=== PATIENT | female | born 1980 ===

== ENCOUNTER 2024-12-13 14:57 | Emergency (ER) | payer SELFPAY ==
[2024-12-13 15:03] VITALS: BP 157/94
--- NOTE | 2024-12-13 15:31 | ED.GENMED ---
History of Present Illness
General
Chief Complaint: Crisis Evaluation
Source: patient and police
Time Seen by Provider: 12/13/24 15:13
History of Present Illness
History of Present Illness:
Note:
CHIEF COMPLAINT(S)
Bizarre behavior, refusal to eat and drink.
HISTORY OF PRESENT ILLNESS
The patient is a 44-year-old female with a history of incarceration since April 2024 due to a charge of aggravated assault. She was found by detention staff exhibiting unusual behavior, refusing to eat and drink. Her ability to provide a coherent
history is limited, and she demonstrates difficulty focusing on one subject. She expresses a fear of hospital food. At one point, she was prescribed a medication likely to be Olanzapine (Zyprexa). Currently, she denies chest pain and shortness of
breath.
ADDITIONAL HISTORY OBTAINED FROM SOURCES OTHER THAN THE PATIENT
The police officers who brought the patient to the hospital reported her behavior as concerning. She arrives under a 302 commitment for emergency evaluation.
REVIEW OF SYSTEMS
- General: Issues with eating and drinking.
- Psychiatric: Bizarre behavior, difficulty focusing, fear of hospital food. Denies current chest pain or dyspnea (difficulty breathing).
PHYSICAL EXAM
General: Alert, no acute distress.
Skin: Warm, dry.
Head: Normocephalic, atraumatic.
Neck: Supple, trachea midline.
Eyes, Ears, Nose, Mouth, and Throat: Oral mucosa moist.
Cardiovascular: Normal peripheral perfusion, No edema.
Respiratory: Respirations are non-labored.
Gastrointestinal: Abdomen nondistended.
Back: Normal range of motion, Normal alignment.
Musculoskeletal: Normal range of motion, normal strength.
Neurological: Alert and oriented to person, place, time, and situation; no focal neurological deficit observed.
Psychiatric: Cooperative, exhibits paranoia, poor judgment
PROBLEM LIST
Acute:
- Bizarre behavior
- Refusal to eat and drink
PLAN
The patient is here on a 302 commitment for psychiatric evaluation. Further assessment and monitoring of her psychiatric status and eating/drinking habits will be conducted.
DIFFERENTIAL DIAGNOSIS
The Differential Diagnosis includes, in no particular order and is not limited to:
- Schizophrenia
- Major depressive disorder with psychotic features
- Bipolar disorder with psychotic features
- Delusional disorder
- Acute psychotic disorder
- Medication side effects
- Malnutrition-related cognitive impairment
- Substance-induced psychosis
- Anxiety disorder
- Adjustment disorder
Disposition:
SUMMARY OF ENCOUNTER
The patient is a 44-year-old female who was brought to the emergency department under a 302 commitment due to bizarre behavior, including refusal to eat and drink. Psychiatry was consulted, and they suspect schizophrenia. The patient was evaluated,
and it was determined that medication was necessary to manage her agitation.
PLAN
The patient is to be managed with a focus on her psychiatric evaluation while awaiting placement.
MEDICATION RECONCILIATION
Psychiatry has recommended antipsychotic medications, including alprazolam (uncertain if this was administered) and risperidone (uncertain if this was administered).
MEDICAL DECISION MAKING
-Complexity of Data Reviewed: Chronic conditions affecting care include the patients history of psychiatric problems such as bizarre behavior and likely schizophrenia. Differential diagnosis includes schizophrenia, major depressive disorder with
psychotic features, bipolar disorder with psychotic features, delusional disorder, acute psychotic disorder, medication side effects, malnutrition-related cognitive impairment, substance-induced psychosis, anxiety disorder, and adjustment disorder.
-Data:
Category 2: Clinical information was obtained from an independent historian, including input from the police officers who reported the patients concerning behavior.
Category 3: Discussion of management occurred with psychiatry via a consultation, recommending specific antipsychotic treatment to manage the patients current state.
DIAGNOSIS
Suspected Schizophrenia (ICD-10: F20.9).
Past History
Past History
ED Past Medical History: Psychiatric
ED Past Surgical History: None
Social History
Tobacco: Non-smoker
Phy Exam
Physical Exam
Physical Exam:
.
Course
Orders/Labs/Results
Orders:
Orders
12/13/24 15:46
Lorazepam [Ativan] 0.5 mg PO Q4HPRN PRN
Risperidone Disintegrating [Risperdal M-Tab (Orally Disintegrating)] 1 mg PO Q8HPRN PRN
Vital Signs
Initial and Last Documented VS:
Initial Vital Signs
Pulse Resp BP Pulse Ox
69 18 157/94 95
12/13/24 15:03 12/13/24 15:03 12/13/24 15:03 12/13/24 15:03
Last Documented Vital Signs
Pulse Resp BP Pulse Ox
69 16 157/94 95
12/13/24 15:03 12/13/24 22:15 12/13/24 15:03 12/13/24 15:31
*Pulse Oximetry
SaO2: 95
Oxygen Mode of Delivery: Room air
Patient hypoxic: no
*Critical Care Note
Total Time (30-74mins, 75-104mins- exclusive of procedures): 30 minutes
ED Attending Note
-
Portions of this chart may have been created with voice recognition software.� Occasional wrong word or��sound alike� substitutions may have occurred due to the inherent limitations of voice recognition software.
Discharge Plan
Departure
Patient Disposition: Psych Facility
Date of Disposition: 12/13/24
Time of Disposition: :
Discharge Problem:
Acute paranoia, suspected schizophrenia
Prescriptions:
No Action
No Current Medications
0
Referrals:
UNKNOWN - PT NOT,INTERVIEWE [Family Provider]
Interventions
Interventions:
*Risk Screen - Suicide Last Done: 12/13/24 15:03
*General Assessment Last Done: 12/13/24 15:03
*Neglect/Abuse Screening Last Done: 12/13/24 15:03
*ED- Fall Risk Assessment Last Done: 12/13/24 15:03
*ED COVID-19 Vaccine History Last Done: 12/13/24 15:03
*ED Influenza Vaccine History Last Done: 12/13/24 15:03
ED-Psychological Assessment Last Done: 12/13/24 15:03
Discharge Date and Time
Print Language: LUXEMBOURGISH
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
--- NOTE | 2024-12-14 12:31 | W.PN.UPDATE ---
Update Note
Progress Note Update
Pt seen, reviewed 302 and assessments. Pt standing in the corner of common area a C pod, looking at menu, stating she ate breakfast. Staff reports pt was up all night pacing around and yelling/screaming. Pt noted expressing delusions about
terrorists targeting her. She states she has been in therapy, but continues to decline medications. Affect inappropriate/bizarre. Pt appears very thin. She states she wants to leave; reviewed the 302/303 process. Insight is impaired.
Imp: Schizoaffective d/o vs Schizophrenia; on 302 from alf due to inability to care for self, psychosis
Rec: continue inpatient psych placement effort; continue current medications
Will follow
--- NOTE | 2024-12-14 19:56 | EDRN ---
Pt lying on bed with blanket over her head. This RN removed the blanket to uncover pt's face/head and informed pt her head must be visible. Pt repeatedly put the blanket back over her head. This RN informed pt each time her head must remain
visible. Offered to close pt's door to make room darker for her. Pt would not listen and put the blanket over her head again. This RN informed pt after approximately 4 times of doing this that her blanket will be removed if she continues to place
it over her head. Pt said 'you might as well take the blankets then because I'm going to keep doing it.' Blankets removed. Pt informed she can have the blankets back at any time when she stops covering her face/head with them. Offered pt
beverage/food which she did not respond to. Pt declined repeat VS. Empty containers of applesauce and food removed from pt bedside. Pt got up from bed and closed her door as this RN exited room. Pt being observed by security.
--- NOTE | 2024-12-14 20:58 | EDRN ---
Noted on camera that pt's entire body covered again including her head. This RN went in and found pt took the contour sheet on the bed and wrapped herself in it. This RN told pt her face must remain visible, uncovered at all times and if she is
unable to follow that instruction, the last sheet will be removed. Pt said she would do so. This RN left the room and pt immediately covered her face again. When door opened, pt uncovered her face and asked 'my whole face or just my eyes?'
Informed pt her entire face must be uncovered. Pt observed by security.
--- NOTE | 2024-12-14 22:06 | EDRN ---
Called crisis for update on pt status and informed pt has been denied everywhere, no one is currently reviewing pt. New bed search will happen overnight.
--- NOTE | 2024-12-15 01:41 | EDRN ---
Pt being watched by EDT now - this RN had to ask pt to uncover face again. This had to be done 3 times until pt settled and did not pull it back over her head/face.
--- NOTE | 2024-12-15 13:55 | W.PN.UPDATE ---
Update Note
Progress Note Update
Pt seen, presents the same today. Reportedly slept some overnight, prefers to keep a blanket over her head,despite repeated requests from staff to keep head uncovered. Pt has not taken any prn Risperidone or Ativan. Unclear from notes how much pt
is eating; appears in no distress, alert, oriented, calm, ambulating without difficulty.
Imp: Schizoaffective d/o vs Schizophrenia; [facility] due to inability to care for self, psychosis
Rec: continue assessment on 302. No inpatient psychiatric prospects at present due to pt requiring a Counts include 234 beds at the [facility] bed; continue current medications
Will follow
--- NOTE | 2024-12-16 00:23 | ED.GENMED ---
History of Present Illness
<Junaid Dorantes DO - Last Filed: 12/18/24 06:45>
General
Chief Complaint: Crisis Evaluation
Source: patient
Time Seen by Provider: 12/13/24 15:13
Nursing documentation reviewed up to this point in time: agreed with
History of Present Illness
History of Present Illness:
44-year-old female presents after incarceration to the emergency department for evaluation of psychiatric disorder.
Past History
<Junaid Dorantes DO - Last Filed: 12/18/24 06:45>
Past History
ED Past Medical History: Psychiatric
ED Past Surgical History: None
Social History
Tobacco: Non-smoker
Phy Exam
<Hay Mcqueen MD - Last Filed: 12/18/24 08:48>
Physical Exam
Physical Exam:
*
Course
<Junaid Dorantes DO - Last Filed: 12/18/24 06:45>
Orders/Labs/Results
Orders:
Orders
12/13/24 15:46
Lorazepam [Ativan] 0.5 mg PO Q4HPRN PRN
Risperidone Disintegrating [Risperdal M-Tab (Orally Disintegrating)] 1 mg PO Q8HPRN PRN
12/16/24
Electrocardiogram (*1) Stat
Reason for Study: Atrial Flutter
12/16/24 00:22
Test Result ONCE
12/16/24 09:15
Test Result ONCE
12/16/24 09:22
Ketamine [Ketamine HCl] 150 mg IM NOW STA
12/16/24 09:27
Straight cath- Treatment ONCE
12/16/24 09:40
Acetaminophen Urgent
Alcohol Urgent
Complete Blood Count/No Diff Urgent
Comprehensive Metabolic Panel Urgent
Salicylate Urgent
TSH Reflex To Free T4 Urgent
Comment: TSH REFLEX ADDED ON BY FLOOR 10:40AM 12-16-24
12/16/24 10:36
Risperidone Disintegrating [Risperdal M-Tab (Orally Disintegrating)] 1 mg PO NOW STA
12/16/24 10:42
Add On- LAB Urgent
Tests Added?: TSH to reflex freeT4
12/16/24 12:41
HCG, Urine Qualitative Screen Urgent
Date Specimen was Collected: 12/16/24
Time Specimen was Collected: 09:16
Urine Drug Abuse Screen Urgent
Date Specimen was Collected: 12/16/24
Time Specimen was Collected: 09:16
12/16/24 17:43
Olanzapine [Zyprexa] 2.5 mg IM Q12 PRN
12/16/24 20:00
Risperidone Disintegrating [Risperdal M-Tab (Orally Disintegrating)] 1 mg PO BID
12/18/24 10:10
Electrocardiogram (*1) Stat
Comment: ALREADY DONE IN ED
Abnormal Lab Results
12/16/24
09:40
WBC 4.2 L 10^3/uL
(4.8-10.8)
MPV 11.2 H fL
(7.4-10.4)
Salicylates < 1.0 L mg/dl
(2.0-20.0)
Acetaminophen < 10 L ug/ml
(10-30)
12/16/24 09:40
12/16/24 09:40
Vital Signs
Initial and Last Documented VS:
Initial Vital Signs
Pulse Resp BP Pulse Ox
69 18 157/94 95
12/13/24 15:03 12/13/24 15:03 12/13/24 15:03 12/13/24 15:03
Last Documented Vital Signs
Pulse Resp BP Pulse Ox
69 16 157/94 95
12/13/24 15:03 12/13/24 22:15 12/13/24 15:03 12/16/24 00:23
<Hay Mcqueen MD - Last Filed: 12/18/24 08:48>
Orders/Labs/Results
Orders:
Orders
12/13/24 15:46
Lorazepam [Ativan] 0.5 mg PO Q4HPRN PRN
Risperidone Disintegrating [Risperdal M-Tab (Orally Disintegrating)] 1 mg PO Q8HPRN PRN
12/16/24
Electrocardiogram (*1) Stat
Reason for Study: Atrial Flutter
12/16/24 00:22
Test Result ONCE
12/16/24 09:15
Test Result ONCE
12/16/24 09:22
Ketamine [Ketamine HCl] 150 mg IM NOW STA
12/16/24 09:27
Straight cath- Treatment ONCE
12/16/24 09:40
Acetaminophen Urgent
Alcohol Urgent
Complete Blood Count/No Diff Urgent
Comprehensive Metabolic Panel Urgent
Salicylate Urgent
TSH Reflex To Free T4 Urgent
Comment: TSH REFLEX ADDED ON BY FLOOR 10:40AM 12-16-24
12/16/24 10:36
Risperidone Disintegrating [Risperdal M-Tab (Orally Disintegrating)] 1 mg PO NOW STA
12/16/24 10:42
Add On- LAB Urgent
Tests Added?: TSH to reflex freeT4
12/16/24 12:41
HCG, Urine Qualitative Screen Urgent
Date Specimen was Collected: 12/16/24
Time Specimen was Collected: 09:16
Urine Drug Abuse Screen Urgent
Date Specimen was Collected: 12/16/24
Time Specimen was Collected: 09:16
12/16/24 17:43
Olanzapine [Zyprexa] 2.5 mg IM Q12 PRN
12/16/24 20:00
Risperidone Disintegrating [Risperdal M-Tab (Orally Disintegrating)] 1 mg PO BID
12/18/24 10:10
Electrocardiogram (*1) Stat
Comment: ALREADY DONE IN ED
Abnormal Lab Results
12/16/24
09:40
WBC 4.2 L 10^3/uL
(4.8-10.8)
MPV 11.2 H fL
(7.4-10.4)
Salicylates < 1.0 L mg/dl
(2.0-20.0)
Acetaminophen < 10 L ug/ml
(10-30)
12/16/24 09:40
12/16/24 09:40
Vital Signs
Initial and Last Documented VS:
Initial Vital Signs
Pulse Resp BP Pulse Ox
69 18 157/94 95
12/13/24 15:03 12/13/24 15:03 12/13/24 15:03 12/13/24 15:03
Last Documented Vital Signs
Pulse Resp BP Pulse Ox
69 16 157/94 95
12/13/24 15:03 12/13/24 22:15 12/13/24 15:03 12/16/24 00:23
<Rosemarie Perdue, DO - Last Filed: 12/16/24 18:12>
Orders/Labs/Results
Orders:
Orders
12/13/24 15:46
Lorazepam [Ativan] 0.5 mg PO Q4HPRN PRN
Risperidone Disintegrating [Risperdal M-Tab (Orally Disintegrating)] 1 mg PO Q8HPRN PRN
12/16/24
Electrocardiogram (*1) Stat
Reason for Study: Atrial Flutter
12/16/24 00:22
Test Result ONCE
12/16/24 09:15
Test Result ONCE
12/16/24 09:22
Ketamine [Ketamine HCl] 150 mg IM NOW STA
12/16/24 09:27
Straight cath- Treatment ONCE
12/16/24 09:40
Acetaminophen Urgent
Alcohol Urgent
Complete Blood Count/No Diff Urgent
Comprehensive Metabolic Panel Urgent
Salicylate Urgent
TSH Reflex To Free T4 Urgent
Comment: TSH REFLEX ADDED ON BY FLOOR 10:40AM 12-16-24
12/16/24 10:36
Risperidone Disintegrating [Risperdal M-Tab (Orally Disintegrating)] 1 mg PO NOW STA
12/16/24 10:42
Add On- LAB Urgent
Tests Added?: TSH to reflex freeT4
12/16/24 12:41
HCG, Urine Qualitative Screen Urgent
Date Specimen was Collected: 12/16/24
Time Specimen was Collected: 09:16
Urine Drug Abuse Screen Urgent
Date Specimen was Collected: 12/16/24
Time Specimen was Collected: 09:16
12/16/24 17:43
Olanzapine [Zyprexa] 2.5 mg IM Q12 PRN
12/16/24 20:00
Risperidone Disintegrating [Risperdal M-Tab (Orally Disintegrating)] 1 mg PO BID
12/18/24 10:10
Electrocardiogram (*1) Stat
Comment: ALREADY DONE IN ED
Abnormal Lab Results
12/16/24
09:40
WBC 4.2 L 10^3/uL
(4.8-10.8)
MPV 11.2 H fL
(7.4-10.4)
Salicylates < 1.0 L mg/dl
(2.0-20.0)
Acetaminophen < 10 L ug/ml
(10-30)
12/16/24 09:40
12/16/24 09:40
Vital Signs
Initial and Last Documented VS:
Initial Vital Signs
Pulse Resp BP Pulse Ox
69 18 157/94 95
12/13/24 15:03 12/13/24 15:03 12/13/24 15:03 12/13/24 15:03
Last Documented Vital Signs
Pulse Resp BP Pulse Ox
69 16 157/94 95
12/13/24 15:03 12/13/24 22:15 12/13/24 15:03 12/16/24 00:23
<Joshua Ahmadi, DO - Last Filed: 12/19/24 13:02>
Orders/Labs/Results
Orders:
Orders
12/13/24 15:46
Lorazepam [Ativan] 0.5 mg PO Q4HPRN PRN
Risperidone Disintegrating [Risperdal M-Tab (Orally Disintegrating)] 1 mg PO Q8HPRN PRN
12/16/24
Electrocardiogram (*1) Stat
Reason for Study: Atrial Flutter
12/16/24 00:22
Test Result ONCE
12/16/24 09:15
Test Result ONCE
12/16/24 09:22
Ketamine [Ketamine HCl] 150 mg IM NOW STA
12/16/24 09:27
Straight cath- Treatment ONCE
12/16/24 09:40
Acetaminophen Urgent
Alcohol Urgent
Complete Blood Count/No Diff Urgent
Comprehensive Metabolic Panel Urgent
Salicylate Urgent
TSH Reflex To Free T4 Urgent
Comment: TSH REFLEX ADDED ON BY FLOOR 10:40AM 12-16-24
12/16/24 10:36
Risperidone Disintegrating [Risperdal M-Tab (Orally Disintegrating)] 1 mg PO NOW STA
12/16/24 10:42
Add On- LAB Urgent
Tests Added?: TSH to reflex freeT4
12/16/24 12:41
HCG, Urine Qualitative Screen Urgent
Date Specimen was Collected: 12/16/24
Time Specimen was Collected: 09:16
Urine Drug Abuse Screen Urgent
Date Specimen was Collected: 12/16/24
Time Specimen was Collected: 09:16
12/16/24 17:43
Olanzapine [Zyprexa] 2.5 mg IM Q12 PRN
12/16/24 20:00
Risperidone Disintegrating [Risperdal M-Tab (Orally Disintegrating)] 1 mg PO BID
12/18/24 10:10
Electrocardiogram (*1) Stat
Comment: ALREADY DONE IN ED
Abnormal Lab Results
12/16/24
09:40
WBC 4.2 L 10^3/uL
(4.8-10.8)
MPV 11.2 H fL
(7.4-10.4)
Salicylates < 1.0 L mg/dl
(2.0-20.0)
Acetaminophen < 10 L ug/ml
(10-30)
12/16/24 09:40
12/16/24 09:40
Vital Signs
Initial and Last Documented VS:
Initial Vital Signs
Pulse Resp BP Pulse Ox
69 18 157/94 95
12/13/24 15:03 12/13/24 15:03 12/13/24 15:03 12/13/24 15:03
Last Documented Vital Signs
Pulse Resp BP Pulse Ox
69 16 157/94 95
12/13/24 15:03 12/13/24 22:15 12/13/24 15:03 12/16/24 00:23
Carloslt;Junaid Dorantes, DO - Last Filed: 12/18/24 06:45>
*Pulse Oximetry
SaO2: 95
Oxygen Mode of Delivery: Room air
Patient hypoxic: no
*Critical Care Note
Total Time (30-74mins, 75-104mins- exclusive of procedures): Not Applicable
<Rosemarie Perdue DO - Last Filed: 12/16/24 18:12>
*EKG
Interpreted by ED Provider?: Yes (I independently viewed and interpreted twelve-lead EKG showing normal sinus rhythm with significant baseline artifact (patient was shaking her foot throughout EKG), rate 87, normal axis, normal intervals, this is a
normal variant with significant artifact, no prior for comparison)
*Laser/Electro Optics Technician Interpretation
Rate: normal (I independently viewed interpreted rhythm strip showing normal sinus rhythm with significant artifact, no ectopy)
<Junaid Dorantes, - Last Filed: 12/18/24 06:45>
Update Note
Update Note:
Crisis called. MCS is reviewing patient. They request labs and EKG.
Patient refused blood work stating that she 'would rather wait for her hearing then give us blood work so that we can develop pills to use against her '
<Hay Mcqueen MD - Last Filed: 12/18/24 08:48>
Update Note
Update Note:
Crisis called. MCS is reviewing patient. They request labs and EKG.
Patient refused blood work stating that she 'would rather wait for her hearing then give us blood work so that we can develop pills to use against her '
As patient remains uncooperative and delaying further evaluation and treatment, decision made to obtain blood work after sedation, for safety purposes. As such, ketamine 150 mg IM will be administered, at subtherapeutic dose based on patient's
approximate weight of 50 kg. Fortunately, prior to administration of ketamine, patient agreed to nursing staff drawing blood from her. As such, ketamine not provided and blood work obtained safely.
Patient evaluated by Dr. Leggett, psychiatry, who requests that patient receive Risperdal orally dissolving tablet.
<Rosemarie Perdue DO - Last Filed: 12/16/24 18:12>
Update Note
Update Note:
Crisis called. MCS is reviewing patient. They request labs and EKG.
Patient refused blood work stating that she 'would rather wait for her hearing then give us blood work so that we can develop pills to use against her '
As patient remains uncooperative and delaying further evaluation and treatment, decision made to obtain blood work after sedation, for safety purposes. As such, ketamine 150 mg IM will be administered, at subtherapeutic dose based on patient's
approximate weight of 50 kg. Fortunately, prior to administration of ketamine, patient agreed to nursing staff drawing blood from her. As such, ketamine not provided and blood work obtained safely.
Patient evaluated by Dr. Leggett, psychiatry, who requests that patient receive Risperdal orally dissolving tablet.
12/16/20241747: Patient has been calm and cooperative throughout the day. I spoke with Dr. Leggett from psychiatry. Patient is awaiting court tomorrow. He would recommend the patient be initiated on 1 mg Risperdal M-Tab twice daily. He recommends
the patient be given Zyprexa 2.5 mg IM if she refuses to take the oral medication. These medications are ordered. Patient has not yet had EKG performed, will obtain.
<Joshua Ahmadi, DO - Last Filed: 12/19/24 13:02>
Update Note
Update Note:
Crisis called. MCS is reviewing patient. They request labs and EKG.
Patient refused blood work stating that she 'would rather wait for her hearing then give us blood work so that we can develop pills to use against her '
As patient remains uncooperative and delaying further evaluation and treatment, decision made to obtain blood work after sedation, for safety purposes. As such, ketamine 150 mg IM will be administered, at subtherapeutic dose based on patient's
approximate weight of 50 kg. Fortunately, prior to administration of ketamine, patient agreed to nursing staff drawing blood from her. As such, ketamine not provided and blood work obtained safely.
Patient evaluated by Dr. Leggett, psychiatry, who requests that patient receive Risperdal orally dissolving tablet.
12/16/20241747: Patient has been calm and cooperative throughout the day. I spoke with Dr. Leggett from psychiatry. Patient is awaiting court tomorrow. He would recommend the patient be initiated on 1 mg Risperdal M-Tab twice daily. He recommends
the patient be given Zyprexa 2.5 mg IM if she refuses to take the oral medication. These medications are ordered. Patient has not yet had EKG performed, will obtain.
12/19/2024 1 PM
Crisis is continuing the bed search. She is currently on a 303. Of note, patient has been improving somewhat in regards to that she is now eating.
ED Attending Note
<Junaid Dorantes, DO - Last Filed: 12/18/24 06:45>
-
Portions of this chart may have been created with voice recognition software.� Occasional wrong word or��sound alike� substitutions may have occurred due to the inherent limitations of voice recognition software.
Discharge Plan
Departure
Patient Disposition: Psych Facility
Date of Disposition: 12/13/24
Time of Disposition: 15:31
Discharge Problem:
Acute paranoia, suspected schizophrenia
Prescriptions:
No Action
No Current Medications
0
Referrals:
UNKNOWN - PT NOT,INTERVIEWE [Family Provider]
Interventions
Interventions:
*Risk Screen - Suicide Last Done: 12/13/24 15:03
*General Assessment Last Done: 12/13/24 15:03
*Neglect/Abuse Screening Last Done: 12/13/24 15:03
*ED- Fall Risk Assessment Last Done: 12/13/24 15:03
*ED COVID-19 Vaccine History Last Done: 12/13/24 15:03
*ED Influenza Vaccine History Last Done: 12/13/24 15:03
ED-Psychological Assessment Last Done: 12/15/24 14:03
Discharge Date and Time
Print Language: JAPANESE
--- NOTE | 2024-12-16 09:25 | EDRN ---
Dr. Mcqueen was at the pts bedside, per Dr. Mcqueen lab work needs to be done, per Dr. Mcqueen Ketamine IM will be ordered that the provider will administer
[2024-12-16 09:33] VITALS: BMI 19.5
--- NOTE | 2024-12-16 09:34 | EDRN ---
per Dr. Mcqueen's request, multiple security specialists were called to crisis room to prepare to medicate the pt
--- NOTE | 2024-12-16 09:43 | EDRN ---
Dr. Mcqueen was able to speak to the pt and the pt stated, 'Here I'll give you my blood so you won't hurt me', it was made clear to the pt by this RN and Dr. Mcqueen that staff is not here to hurt the pt, Dr. Mcqueen explained that the pt was delaying her care,
the pt was agreeable to allowing this RN to obtain blood work, blood work drawn and sent, the pt does need to provide a urine sample, the pt stated that she didn't have to use the bathroom yet, this RN provided the pt with a urine cup and asked for
a sample when the pt needed to use the bathroom
[2024-12-16 09:50] LABS: Hematocrit 39.9 % (37.0-47.0); Hemoglobin 13.6 g/dL (12.0-16.0); Mean Corp Hgb Conc. 34.1 g/dL (33.0-37.0); Mean Corpuscular Volume 88.5 fL (81.0-99.0); Platelet Count 194 10^3/uL (130-400); Red Cell Dist. Width 12.6 % (11.5-14.5)
[2024-12-16 10:10] LABS: ALT (SGPT) 13 U/L (0-35); AST (SGOT) 18 U/L (14-36); Acetaminophen < 10 ug/ml (10-30); Albumin 4.4 g/dl (3.5-5.0); Alkaline Phosphatase 42 U/L (38-126); Blood Urea Nitrogen 12 mg/dl (7-17); Calcium 9.5 mg/dl (8.4-10.2); Carbon Dioxide 27 mmol/L (22-30); Chloride 105 mmol/L (98-107); Estimated Creatinine Clearance 96 ml/min; Glucose 92 mg/dl (70-99); Potassium 4.1 mmol/L (3.5-5.1); Salicylate < 1.0 mg/dl (2.0-20.0); Sodium 138 mmol/L (135-145); Total Protein 7.6 g/dl (6.3-8.2); eGFR > 60.00
--- NOTE | 2024-12-16 10:30 | EDRN ---
psychiatry at the pts bedside
--- NOTE | 2024-12-16 10:36 | EDRN ---
psychiatry speaking to Dr. Mcqueen
[2024-12-16] MEDS: RISPERDAL M-TAB (ORALLY DISINTEGRATING) 1 MG PO ×2 (10:46→19:46)
--- NOTE | 2024-12-16 10:53 | EDRN ---
per provider this RN attempted to administer Risperidone, this RN entered the pts room and attempted to verbally wake up the pt and the pt would not sit up for this RN or answer this RN, the pt was breathing and no s/s of distress, this RN notified
Dr. Mcqueen and Dr. Mcqueen came to the pts bedside and the pt woke up for Dr. Mcqueen and was able to take the medication, this RN asked if the pt could urinate and the pt stated that she would provide urine when she was ready to pee
--- NOTE | 2024-12-16 11:39 | W.PN.UPDATE ---
Update Note
Progress Note Update
pt seen to assess ongoing need for inpatient psychiatric care. Seen in Crisis 2 room with covers over head. Pt challenged my identification, insisted she did not need to speak with me, but did speak with me some. Had been seen by ED MD earlier in
shift and was able to allow for phlebotomy and to provide urine specimen. Chart reviewed, has been incarcerated for past 6 months so illicit substances unlikely to be playing a part in her current presentation (talking to self, refusing psychiatric
care, losing weight) which caused [facility] to send her in.
Pressured speech, irritable, disheveled. Refusing meds until confronted with involuntary status and need for treatment. Agreed to take anything oral; will try risperidone M-tabs. PT aware she will get IM zyprexa otherwise.
Has noticeable goiter, was referenced in a record from [facility] corrections in April 2023.
Will need thyroid testing.
Labs studies so far unremarkable.
--- NOTE | 2024-12-16 11:57 | EDRN ---
still waiting for urine from the pt, the pt states that she will provide a urine sample when she needs to go to the bathroom, this RN notified Dr. Mcqueen
[2024-12-16 13:00] LABS: HCG, Urine Qualitative Screen Negative
--- NOTE | 2024-12-16 13:00 | EDRN ---
the pt was able to successfully provide a urine sample that was sent to the lab, the pt is still currently refusing vital signs to be taken, no s/s of distress, will continue to monitor the pt closely
--- NOTE | 2024-12-16 18:06 | EDRN ---
Addendum entered by Britta Nuñez RN 12/16/24 18:10:
to add to previous note, once this RN put EKG wires in place on stickers on the pts chest the pt started shaking her left foot, this RN asked the pt if she could please stop shaking her left foot and she kept doing it, this RN notified Dr. Perdue
and notified her that the left foot shaking could have caused the rhythm to appear as Aflutter
Original Note:
the pt initially refused EKG, this RN entered the pts room with PCT Carin and the pt agreed to having EKG performed, this RN asked if the pt would mind slightly pulling her shirt up to where this RN needs to place EKG sticker and the pt stated,
'I'm not pulling my shift up you pull it up its your job, you're here to hurt me are't you?', this RN explained to the pt that this RN and PCT was not there to hurt the pt but to do an EKG to assure that the pts heart rhythm was okay, this RN asked
the pt if she consented to allowing this RN to place EKG stickers on her chest and the pt stated yes, EKG was performed in EKG showed Aflutter
--- NOTE | 2024-12-16 18:49 | EDRN ---
this RN entered the pts room and notified the pt that vital signs have not been done in a while and asked the pt if this RN could obtain vital signs, the pt stated, 'No vital signs, i don't do vital signs, i don't need vital signs', this RN
explained to the pt that the ER provider Dr. Perdue wanted a set of vital signs and the pt still refused, this RN noticed that the pt had the blanket over her head and asked the pt to take it down and the pt would not, this RN removed the blanket
from over the pts face, this RN explained to the pt that per the provider and per security that the pt was not to cover her face with the blanket and per the provider it is important that vital signs are obtained to assure that the pt is stable, the
pt stood up and started screaming at this RN and stated that this RN just wants to hurt her and just wants to stab her with a needle, this RN assured the pt that this RN would never hurt the pt and that this RN did not have a needle, the pt was able
to calm down on her own and per the pt she does not wants staff to bother her and she does not want to be bothered by nurses anymore and just wants to leave, this RN notified Dr. Perdue that the pt does not want vitals performed
--- NOTE | 2024-12-17 07:58 | EDRN ---
this RN called cheryl for an update and spoke to Jennifer, cheryl is awaiting for psychiatrist to come in and sign off on paper work so that the pt can have her 303 hearing today at 1230, cheryl will update this RN
[2024-12-17] MEDS: RISPERDAL M-TAB (ORALLY DISINTEGRATING) 1 MG PO ×2 (08:56→19:51)
--- NOTE | 2024-12-17 09:35 | EDRN ---
this RN called crisis staff and got an update, psychiatrist signed 303 paper work and awaiting for 303 hearing
--- NOTE | 2024-12-17 23:10 | W.PN.UPDATE ---
Update Note
Progress Note Update
pt seen this am, discussed 303 hearing with her. Wants to have hearing. 303 exam signed. I testified at mental health court to her need for care; committed for up to 20 days. I also spoke with Shelton Ruiz (number from chart note of last year) who
is pts father. He described a history of schizophrenia with first symptoms noted in high school,treatment starting in 20s. Did well with antipsychotic medications, able to and have two children but has always gone off meds once discharged.
Last hospital stay known to him was in forensic unit at [facility] last year. Loses track of her on her release, paranoid about family. he lives in [place], pt had most recently been living in [place]. that is where her
ex- and her children live.
At court hearing petitioner mentioned that pt is approaching release from [facility] and this prompted 302. as she has no community supports
Overall less agitated, taking risperdal.
EKG shows atrial flutter, perhaps, unless waves due to pt tapping foot. Asymptomatic.
[2024-12-18] MEDS: RISPERDAL M-TAB (ORALLY DISINTEGRATING) 1 MG PO ×2 (08:54→20:29)
--- NOTE | 2024-12-18 22:06 | ED TECH ---
Tried taking BP and patient refused. RN notified (Time 2207)
[2024-12-19] MEDS: RISPERDAL M-TAB (ORALLY DISINTEGRATING) 1 MG PO (08:35)
--- NOTE | 2024-12-19 17:27 | W.PN.UPDATE ---
Update Note
Progress Note Update
patient seen chart reviewed. noted patient has been taking risperdal m tabs one mg bid. she remains quite psychotic. speech pressured. she goes off on tangents about her family and their database security administrator. it is hard to follow her exactly. she is eating .
noted her bp has been high and i cannot find vital signs on chart for several days. needs daily vital signs. asked dr ordaz to look at bp issues. have increased risperdal to one mg q am and 2 mg q hs. there is as of yet not bed for her. i offered
to have a cm from [facility] come over to talk to her about prospects for getting MA reinstated and finding her a place to live but she refuses so far. it is my perception that she is paranoid to talk to anyone about any issues. feels her family is somehow
sabotaging her.
--- NOTE | 2024-12-19 18:59 | ED.CRISIS ---
ED Crisis Note
ED Crisis Note
Subjective:
Patient patient has no acute medical complaints. She apparently is eating better. She still goes off into tangents about her family and installation specialist. Blood pressure has been mildly elevated.
Objective:
Nontoxic no distress. Standing and speaking without difficulty. No respiratory distress. Relatively cooperative however refuses further exam at this time of her neck.
Assessment/Plan:
Patient is remained medically stable. Medical labs were reviewed. She will not allow us to examine her neck at this time. However she is clinically stable. Her TSH is normal. Does not require emergent treatment at this time.
[2024-12-19] MEDS: RISPERDAL M-TAB (ORALLY DISINTEGRATING) 2 MG PO (23:02)
--- NOTE | 2024-12-20 09:05 | ED.CRISIS ---
ED Crisis Note
ED Crisis Note
Subjective:
44-year-old female presenting to the emergency department for concern of psychosis and paranoia. Patient pending placement
Objective:
Nontoxic no distress. Standing and speaking without difficulty. Slightly aggravated/agitated. No respiratory distress. Patient refusing vital signs after multiple discussions
Assessment/Plan:
Patient's chart and documentation reviewed, as well as prior laboratory analysis. Again no acute distress. Pending psychiatric placement and continued psychiatric consultation. Will reattempt to get vital signs
10:15 -patient is refusing her medications. Psychiatry to bedside, notes that patient needs to take her medication. She is not in a position to be able to refuse, acutely psychotic, tangential speech. Will order IM Zyprexa and administer to
patient. Per psych, possible placement today to [facility]
[2024-12-20] MEDS: RISPERDAL M-TAB (ORALLY DISINTEGRATING) PO (09:33)
[2024-12-20] MEDS: RISPERDAL M-TAB (ORALLY DISINTEGRATING) 1 MG PO (10:30)
[2024-12-20 10:37] VITALS: BP 121/85
--- NOTE | 2024-12-20 10:40 | W.PN.UPDATE ---
Update Note
Progress Note Update
pt seen this am for reassessment. Lying on stretcher with head covered by blanket, insists I am not her doctor and need to leave her room immediately. 'Stop talking to me you are not a doctor, I need a layout technician, I will get one and take down this whole
illegal operation.'
Pt believes I am working with her ex-'s family law attorney.
Father Shelton Ruiz [phone] updated.
discussed with nursing staff need to get vital signs and meds, that pt is involuntary and not doing so is as much a violation of her rights as anything. discussed with nursing education consultant.
case discussed with team at [facility], will review. Will need to get authorization from court to have care done there, though [facility] may retain jurisdiction (so for 304 hearing would need to be done in [place].)
== END 2024-12-20 18:28 ==
LOC: EMR 14:57
PROVIDERS: Emergency Medicine; EMERGENCY PHYSICIAN Emergency Medicine
DX: F22 Delusional disorders (principal); I48.92 Unspecified atrial flutter
CPT/HCPCS: 99285; 80053; 80143; 80179; 80306; 81025; 82077; 84443; 85027; 93005; J2358